=== PATIENT | female | born 1960 | race Caucasian/White ===

== ENCOUNTER → 2016-05-17 | Outpatient (CLI) | payer OTHER | DX: L40.50 Arthropathic psoriasis, unspecified (principal) | CPT/HCPCS: 96413; 96415; J1745 ==

== ENCOUNTER → 2016-06-28 | Outpatient (CLI) | payer OTHER | LOC: OPSV 09:50 | DX: L40.50 Arthropathic psoriasis, unspecified (principal); M19.90 Unspecified osteoarthritis, unspecified site; D89.9 Disorder involving the immune mechanism, unspecified; Z71.9 Counseling, unspecified | CPT/HCPCS: 96413; 96415; J1745 ==

== ENCOUNTER → 2016-08-09 | Outpatient (CLI) | payer OTHER ==
[~2016-08-09] VITALS: Ht 170.2 cm; Wt 82.6 kg
== END ==
LOC: OPSV 10:00
DX: L40.50 Arthropathic psoriasis, unspecified (principal)
CPT/HCPCS: 96413; 96415; J1745